=== PATIENT | male | born 1955 | race Caucasian/White ===

== ENCOUNTER → 2018-09-08 10:15 | Outpatient (CLI) | payer OTHER | END | disposition home or self-care (01) | LOC: D.RT 09:00 | DX: J44.9 Chronic obstructive pulmonary disease, unspecified (principal) ==

== ENCOUNTER 2021-04-05 19:35 | Emergency (ER) | payer OTHER, MEDICARE ==
[~2021-04-05] VITALS: Ht 182.9 cm; Wt 65.8 kg
[2021-04-05 19:39] VITALS: BP 145/85; Ht 182.9 cm; Wt 65.8 kg
[2021-04-05] MEDS ORDERED: DICLOFENAC SODI50 MG PO (19:59)
[2021-04-05] MEDS ORDERED: ZANAFLEX4 MG PO (19:59)
== END 2021-04-05 21:10 | disposition home or self-care (01) ==
LOC: D.ER 19:35
DX: S12.110G Anterior displaced Type II dens fracture, subsequent encounter for fracture with delayed healing (principal); M54.12 Radiculopathy, cervical region; M50.30 Other cervical disc degeneration, unspecified cervical region; E11.9 Type 2 diabetes mellitus without complications; I10 Essential (primary) hypertension; Z72.0 Tobacco use